=== PATIENT | male | born 1980 | race Caucasian/White ===

== ENCOUNTER 2019-08-07 16:08 | Inpatient (IN) | payer SELFPAY ==
[~2019-08-07] VITALS: Ht 180.3 cm; Wt 69.9 kg
[2019-08-07 16:29] VITALS: Ht 180.3 cm; Wt 69.9 kg
[2019-08-07 17:12] LABS: BASOPHIL % 0.2 % (0-2); PLATELET COUNT 230 x10^3mcL (130-400)
[2019-08-07 17:14] LABS: RED CELL DISTRIBUTION WIDTH 14.7 % (11.5-14.5)
[2019-08-07 17:38] LABS: ALBUMIN 4.2 g/dL (3.4-5.0); ALKALINE PHOSPHATASE 78 U/L (46-116); ALT/SGPT 68 U/L (16-63); AST/SGOT 24 U/L (15-37); BILIRUBIN TOTAL 0.7 mg/dL (0.20-1.00); CALCIUM 8.5 mg/dL (8.5-10.1); CARBON DIOXIDE 26.7 mmol/L (21-32); CHLORIDE SERUM 102 mmol/L (98-107); CREATININE SERUM 0.9 mg/dL (0.7-1.3); GFR1 > 60 mL/min; GLUCOSE SERUM 106 mg/dL (74-106); POTASSIUM SERUM 3.4 mmol/L (3.5-5.1); SODIUM SERUM 139 mmol/L (136-145); TOTAL PROTEIN, SERUM 7.4 g/dL (6.4-8.2)
[2019-08-07] MEDS ORDERED: [UNRECOGNIZED DRUG - OTHER] PO (18:23)
[2019-08-07] MEDS ORDERED: SODIUM BICARBONATE PO (18:25)
[2019-08-07 18:26] LABS: UA SPECIFIC GRAVITY 1.025 (1.005-1.035); microscopic required? YES; urine erythrocyte TRACE (NEGATIVE)
[2019-08-07 19:39] LABS: AMPHETAMINE QUAL UR NONE DETECTED (See below)
[2019-08-07 20:33] VITALS: BP 113/68
[2019-08-07 23:30] VITALS: BP 122/67
[2019-08-07 23:49] VITALS: BP 124/67
[2019-08-08 00:04] VITALS: BP 119/69
[2019-08-08 05:07] VITALS: BP 100/57
[2019-08-08 07:02] LABS: PLATELET COUNT 221 x10^3mcL (130-400)
[2019-08-08 07:22] LABS: BASOPHIL % 0 % (0-2); RED CELL DISTRIBUTION WIDTH 14.9 % (11.5-14.5)
[2019-08-08 09:11] VITALS: BP 100/52
[2019-08-08] MEDS ORDERED: IBU600 M2 PO (12:25)
[2019-08-08 13:17] VITALS: BP 100/52
[2019-08-08 13:55] VITALS: BP 125/66
[2019-08-08 16:46] VITALS: BP 122/68
== END 2019-08-08 18:05 | disposition home or self-care (01) | DRG 343 ==
LOC: ED 16:08 → MU 18:01
PROVIDERS: Emergency Medicine; Surgery; ADMIT Internal Medicine; ATTEND Internal Medicine
PROC: 0DTJ4ZZ Resection of Appendix, Percutaneous Endoscopic Approach (ICD-10-PCS; principal; 2019-08-07 20:30)
DX: K35.80 Unspecified acute appendicitis (principal); Z83.3 Family history of diabetes mellitus; E87.6 Hypokalemia
CPT/HCPCS: G0378; J2175; J2250; J2270; J2405; J2543; J3010; J3480; J3490; Q0092; Q9967